=== PATIENT | female | born 1985 | race Caucasian/White ===

== ENCOUNTER 2018-11-17 15:42 | Inpatient (IN) | payer OTHER ==
[2018-11-17 17:16] VITALS: BMI 32.3
--- NOTE | 2018-11-17 18:11 | HP ---
"COWS - Scale Resting Pulse: 1= [place] 81-100 Sweatin=Flushed/Facial Moisture Restless Observation: 3= Extraneous Movement Pupil Size: 2= Moderately Dilated (Pupils = 5 mm) Bone or Joint Aches: 1= Mild Discomfort Runny Nose/ Eye Tearin= Runny Nose/Eyes GI Upset > 30mins: 2= Nausea/Diarrhea Tremor Observation: 4= Gross Tremor/Twitching Yawning Observation: 1= 1-2x During Session Anxiety or Irritability: 2=Irritable/Anxious Goose Flesh Skin: 0=Smooth Skin COWS Score: 20 CIWA Score - Admission Criteria OASAS Guidelines: Admission for Medically Managed Detox: Requires at least one of the followin. CIWA greater than 12 2. Seizures within the past 24 hours 3. Delirium tremens within the past 24 hours 4. Hallucinations within the past 24 hours 5. Acute intervention needed for co occurring medical disorder 6. Acute intervention needed for co occurring psychiatric disorder 7. Severe withdrawal that cannot be handled at a lower level of care (continued vomiting, continued diarrhea, abnormal vital signs) requiring intravenous medication and/or fluids 8. Admission ROS S - [facility] Chief Complaint: I'm really sick. They told me to come without using. Allergies/Adverse Reactions: Allergies Allergy/AdvReac Type Severity Reaction Status Date / Time No Known Allergies Allergy Verified 11/17/18 17:12 History of Present Illness: This is the first admission for this 32 yo who presents w/opiate withdrawal symptoms seeking detox. Utox: + FEN, MOP HCG: Neg Heroin use began 31. Current use is 35-40 bags/day x months. Has been trying to stop. States last used yesterday. Denies alcohol use. Dibbed and dabbed in past w. cocaine. Denies seizures, blackouts, overdoses. PMHx: Denies significant PMH. Denies medications. MHx: Denies depression. Denies thoughts of harming self or others SHx: Own apt. Unemployed. No legal issues. Search Terms: Alexia Marquez, 1985 Search Date: 11/17/2018 06:08:36 PM The Drug Utilization Report below displays all of the controlled substance prescriptions, if any, that your patient has filled in the last twelve months. The information displayed on this report is compiled from pharmacy submissions to the Department, and accurately reflects the information as submitted by the pharmacies. This report was requested by: Maureengold Valerio | Reference #: [id number] There are no results for the search terms that you entered. Exam Limitations: No Limitations - Ebola screening Have you traveled outside of the country in the last 21 days: No Have you had contact with anyone from an Ebola affected area: No Have you been sick,other than usual withdrawal symptoms: No Do you have a fever: No - Review of Systems Constitutional: Chills, Diaphoresis, Fever, Loss of Appetite, Changes in sleep ( Difficulty falling asleep) EENT: reports: Nose Congestion Respiratory: reports: Shortness of Breath Cardiac: reports: No Symptoms Reported GI: reports: Nausea, Abdominal cramping, Other (gagging) : reports: No Symptoms Reported Musculoskeletal: reports: Back Pain (r/t withdrawal), Muscle Pain (r/t withdrawal) Integumentary: reports: Rash (exzema), Other (Picking skin - unrelated to itching) Neuro: reports: Headache (Severe frontal headache), Tremors Endocrine: reports: No Symptoms Reported Hematology: reports: No Symptoms Reported Psychiatric: reports: Mood/Affect Appropiate, Orientated x3, Agitated, Anxious Patient History - PPD History Previous Implant?: No (Will order TB Gold test) PPD to be Administered?: No - Reproductive History Patient is a Female of Child Bearing Age (11 -55 yrs old): Yes Last Menstrual Period: 09/06/18 (Irrgular) Patient : No - Smoking Cessation Smoking history: Current every day smoker Have you smoked in the past 12 months: Yes Aproximately how many cigarettes per day: 10 Hx Chewing Tobacco Use: No Initiated information on smoking cessation: Yes 'Breaking Loose' booklet given: 11/17/18 - Substance & Tx. History Hx Alcohol Use: No Hx Substance Use: Yes Substance Use Type: Heroin Hx Substance Use Treatment: No (Tried stopping on own) - Substances abused Heroin Substance route: Inhalation Frequency: Daily Amount used: 35-40bags/day Age of first use: 31 Date of last use: 11/16/18 Admission Physical Exam BHS - Vital Signs Vital Signs: Vital Signs - 24 hr 11/17/18 17:00 Temperature 99.1 F Pulse Rate 87 Respiratory 16 Rate Blood Pressure 155/102 H - Physical General Appearance: Yes: Nourished, Moderate Distress, Tremorous, Sweating, Anxious HEENTM: Yes: EOMI, Hearing grossly Normal, SILVANO (Pupils = 5 mm), Nasal Congestion, Rhinorrhea, Other (Perforated nasal septum) Respiratory: Yes: Lungs Clear, Normal Breath Sounds, No Respiratory Distress Neck: Yes: No masses,lesions,Nodules, Supple Breast: Yes: Breast Exam Deferred Cardiology: Yes: Regular Rhythm, Regular Rate, S1, S2 Abdominal: Yes: Non Tender, Soft, Increased Bowel Sounds, Protuberent ( Increased abdominal adiposity) Genitourinary: Yes: Within Normal Limits Back: Yes: Normal Inspection Musculoskeletal: Yes: full range of Motion, Gait Steady, Other (Hx ankle repair w/ (L) ankle enlargement. No edema) Extremities: Yes: Normal Capillary Refill, Tremors (gross tremors) Neurological: Yes: public health nutritionist II-XII NML intact, Fully Oriented, Alert, Motor Strength 5/5, Normal Response Integumentary: Yes: Normal Color, Warm, Diaphoresis (Increased facial moisture) , Other (Picked skin w/ erythema and scabbing on arms and legs. Red dot-like papular lesions on arms, chest and back) Lymphatic: Yes: Within Normal Limits - Diagnostic (1) Opioid dependence with withdrawal Current Visit: Yes Status: Acute (2) Nicotine dependence, uncomplicated Current Visit: Yes Status: Chronic Qualifiers: Nicotine product type: cigarettes Qualified Code(s): F17.210 - Nicotine dependence, cigarettes, uncomplicated (3) Perforated nasal septum Current Visit: Yes Status: Chronic (4) Skin picking habit Current Visit: Yes Status: Chronic Cleared for Admission [facility] - Detox or Rehab [facility] Level of Care: Medically Managed Detox Regimen/Protocol: Methadone Claeared for Rehab Admission: No Breathalyzer - Breathalyzer Breathalyzer: 0 Urine Drug Screen - Test Device Lot number: [id number] Expiration date: 08/01/20 - Control Is test valid?: Yes - Results Drug screen NEGATIVE: Yes Urine drug screen results: FEN-Fentanyl, MOP-Opiates Inpatient Rehab Admission - Rehab Decision to Admit Inpatient rehab admission?: No"
[2018-11-17] MEDS ORDERED: cloNIDine HCL 0.1 MG TABLET PO PRN (18:28)
[2018-11-17] MEDS ORDERED: PROCHLORPERAZINE MALEATE 5 MG TABLET PO PRN (18:28)
[2018-11-17] MEDS ORDERED: METHADONE HCL 10 MG TABLET (FOR DETOX USE ONLY) PO ONE ×2 (18:28→19:00)
[2018-11-17] MEDS ORDERED: MAGNESIUM HYDROX 2400MG/30ML ORAL SUSPENSION 30 ML CUP PO PRN (18:28)
[2018-11-17] MEDS ORDERED: NICOTINE POLACRILEX 2 MG GUM BUC PRN (18:28)
[2018-11-17] MEDS ORDERED: MAG HYDROX/AL HYDROX/SIMETH 30 ML UNIT-DOSE CUP PO PRN (18:28)
[2018-11-17] MEDS ORDERED: ACETAMINOPHEN 325 MG TABLET (FP) PO PRN ×2 (18:28)
[2018-11-17] MEDS ORDERED: IBUPROFEN 400 MG TABLET (FP) PO PRN (18:28)
[2018-11-17] MEDS ORDERED: MENTHOL/PHENOL 1 EACH UD MM PRN (18:28)
[2018-11-17] MEDS ORDERED: BISMUTH SUBSALICYLATE 524 MG/30 ML UD PO PRN (18:28)
[2018-11-17] MEDS ORDERED: MAGNESIUM CITRATE 300 ML BOTTLE PO PRN (18:28)
[2018-11-17] MEDS ORDERED: cloNIDine HCL 0.1 MG TABLET PO ONE (18:33)
[2018-11-17] MEDS: MELATONIN 5 MG TABLETS PO PRN (22:17)
[2018-11-17] MEDS: THIAMINE HCL 100 MG TABLET (FP) PO SCH (22:17)
[2018-11-17] MEDS: BACITRACIN 0.9 GM PACKET TP SCH (22:18)
[2018-11-17] MEDS: METHOCARBAMOL 500 MG TABLET PO PRN (22:20)
[2018-11-17] MEDS: clonazePAM 0.5 MG TABLET PO PRN (22:20)
[2018-11-18] MEDS: clonazePAM 0.5 MG TABLET PO PRN (07:01)
[2018-11-18] MEDS ORDERED: METHADONE HCL 10 MG TABLET (FOR DETOX USE ONLY) ONE (09:40)
[2018-11-18] MEDS ORDERED: METHADONE HCL 5 MG TABLET (FOR DETOX USE ONLY) ONE (09:40)
[2018-11-18 09:59] LABS: HEMATOCRIT 43.7 % (32.4-45.2); HEMOGLOBIN 14.8 GM/dL (10.7-15.3); MCH 31.1 pg (25.7-33.7); MEAN CELL VOLUME 91.5 fl (80-96); MEAN PLT VOLUME 9.7 fl (7.5-11.1); PLATELET COUNT 280 K/MM3 (134-434); RBC 4.77 M/mm3 (3.60-5.2); RDW 13.8 % (11.6-15.6); WHITE BLOOD COUNT 9.4 K/mm3 (4.0-10.0)
[2018-11-18] MEDS ORDERED: METHADONE (DETOX) 20 MG, METHADONE (DETOX) 5 MG PO ONE (10:00)
[2018-11-18] MEDS: METHOCARBAMOL 500 MG TABLET PO PRN (10:03)
[2018-11-18] MEDS: PRENATAL VITAMINS W/ FOLIC ACID TABLET (FP) PO SCH (10:03)
[2018-11-18] MEDS: BACITRACIN 0.9 GM PACKET TP SCH ×2 (10:04→22:28)
[2018-11-18] MEDS: NICOTINE 21 MG/24 HOURS TOPICAL PATCH TD SCH (10:04)
--- NOTE | 2018-11-18 10:09 | PN ---
BHS COWS - Scale Resting Pulse: 1= [place] 81-100 Sweatin=Flushed/Facial Moisture Restless Observation: 1= Difficult to Sit Still Pupil Size: 0= Normal to Room Light Bone or Joint Aches: 2= Severe Diffuse Aches Runny Nose/ Eye Tearin= Runny Nose/Eyes GI Upset > 30mins: 2= Nausea/Diarrhea Tremor Observation of Outstretched Hands: 2= Slight Tremor Visible Yawning Observation: 2= >3x During Session Anxiety or Irritability: 2=Irritable/Anxious Goose Flesh Skin: 0=Smooth Skin COWS Score: 16 BHS Progress Note (SOAP) Subjective: sweats shakes restless body aches interrupted sleep agitation Objective: 11/18/18 10:08 Vital Signs Temperature 97.9 F 11/18/18 09:02 Pulse Rate 82 11/18/18 09:02 Respiratory Rate 18 11/18/18 09:02 Blood Pressure 137/76 11/18/18 09:02 O2 Sat by Pulse Oximetry (%) Laboratory Tests 11/18/18 08:00 WBC 9.4 RBC 4.77 Hgb 14.8 Hct 43.7 MCV 91.5 MCH 31.1 MCHC 34.0 RDW 13.8 Plt Count 280 MPV 9.7 rest of labs pending aaox3 ambulating no acute distress Assessment: 11/18/18 10:09 withdrawals sx Plan: continue detox increase fluids valium 10mg prn pending labs
[2018-11-18 10:24] LABS: ALBUMIN 4.1 g/dl (3.4-5.0); BILIRUBIN,TOTAL 1.6 mg/dL (0.2-1); BLOOD UREA NITROGEN 10.4 mg/dL (7-18); CALCIUM 9.2 mg/dL (8.5-10.1); CREATININE 0.7 mg/dL (0.55-1.3); TOT PROT 7.4 g/dl (6.4-8.2)
[2018-11-18] MEDS: diazePAM 5 MG TABLET PO PRN ×3 (10:33→20:03)
--- NOTE | 2018-11-18 13:03 | EKG ---
Test Reason : Blood Pressure : / mmHG Vent. Rate : 073 BPM Atrial Rate : 073 BPM P-R Int : 180 ms QRS Dur : 078 ms QT Int : 374 ms P-R-T Axes : 023 050 039 degrees QTc Int : 412 ms NORMAL SINUS RHYTHM NORMAL ECG NO PREVIOUS ECGS AVAILABLE Confirmed by MD Last, Mario ([id number]) on 11/18/2018 1:03:24 PM Referred By: LEONIE LONG Confirmed By:Mario Ni MD
[2018-11-18] MEDS: THIAMINE HCL 100 MG TABLET (FP) PO SCH (22:02)
[2018-11-18] MEDS: MELATONIN 5 MG TABLETS PO PRN (22:03)
[2018-11-19] MEDS: diazePAM 5 MG TABLET PO PRN ×5 (00:31→22:20)
--- NOTE | 2018-11-19 09:47 | PN ---
BHS COWS - Scale Resting Pulse: 1= [place] 81-100 Sweatin= Chills/Flushing Restless Observation: 1= Difficult to Sit Still Pupil Size: 1= Pupils >than Normal Bone or Joint Aches: 2= Severe Diffuse Aches Runny Nose/ Eye Tearin= Runny Nose/Eyes GI Upset > 30mins: 2= Nausea/Diarrhea Tremor Observation of Outstretched Hands: 2= Slight Tremor Visible Yawning Observation: 1= 1-2x During Session Anxiety or Irritability: 2=Irritable/Anxious Goose Flesh Skin: 0=Smooth Skin COWS Score: 15 BHS Progress Note (SOAP) Subjective: alert,irritable,anxious,interrupted sleep,pain in the body and back,nausea Objective: 11/19/18 09:43 Vital Signs Temperature 98.6 F 11/19/18 09:05 Pulse Rate 87 11/19/18 09:05 Respiratory Rate 18 11/19/18 09:05 Blood Pressure 114/59 L 11/19/18 09:05 O2 Sat by Pulse Oximetry (%) Laboratory Last Values WBC 9.4 K/mm3 (4.0-10.0) 11/18/18 08:00 RBC 4.77 M/mm3 (3.60-5.2) 11/18/18 08:00 Hgb 14.8 GM/dL (10.7-15.3) 11/18/18 08:00 Hct 43.7 % (32.4-45.2) 11/18/18 08:00 MCV 91.5 fl (80-96) 11/18/18 08:00 MCH 31.1 pg (25.7-33.7) 11/18/18 08:00 MCHC 34.0 g/dl (32.0-36.0) 11/18/18 08:00 RDW 13.8 % (11.6-15.6) 11/18/18 08:00 Plt Count 280 K/MM3 (134-434) 11/18/18 08:00 MPV 9.7 fl (7.5-11.1) 11/18/18 08:00 Sodium 138 mmol/L (136-145) 11/18/18 08:00 Potassium 4.0 mmol/L (3.5-5.1) 11/18/18 08:00 Chloride 104 mmol/L (98-107) 11/18/18 08:00 Carbon Dioxide 26 mmol/L (21-32) 11/18/18 08:00 Anion Gap 8 MMOL/L (8-16) 11/18/18 08:00 BUN 10.4 mg/dL (7-18) 11/18/18 08:00 Creatinine 0.7 mg/dL (0.55-1.3) 11/18/18 08:00 Est GFR (CKD-EPI)AfAm 131.02 11/18/18 08:00 Est GFR (CKD-EPI)NonAf 113.04 11/18/18 08:00 Random Glucose 89 mg/dL (74-106) 11/18/18 08:00 Calcium 9.2 mg/dL (8.5-10.1) 11/18/18 08:00 Total Bilirubin 1.6 mg/dL (0.2-1) H 11/18/18 08:00 AST 13 U/L (15-37) L 11/18/18 08:00 ALT 18 U/L (13-61) 11/18/18 08:00 Alkaline Phosphatase 97 U/L (45-117) 11/18/18 08:00 Total Protein 7.4 g/dl (6.4-8.2) 11/18/18 08:00 Albumin 4.1 g/dl (3.4-5.0) 11/18/18 08:00 POC Urine HCG, Qual Negative 11/17/18 19:13 Assessment: 11/19/18 09:46 withdrawal symptom Plan: continue detox methadone regimen,encourage oral fluid,psychiatric consultation for anxiety,depression and insomnia
[2018-11-19] MEDS ORDERED: METHADONE HCL 10 MG TABLET (FOR DETOX USE ONLY) PO ONE (10:00)
[2018-11-19] MEDS: PRENATAL VITAMINS W/ FOLIC ACID TABLET (FP) PO SCH (10:44)
[2018-11-19] MEDS: NICOTINE 21 MG/24 HOURS TOPICAL PATCH TD SCH (10:44)
[2018-11-19] MEDS: BACITRACIN 0.9 GM PACKET TP SCH ×2 (11:11→23:06)
[2018-11-19] MEDS: THIAMINE HCL 100 MG TABLET (FP) PO SCH (22:18)
[2018-11-19] MEDS: MELATONIN 5 MG TABLETS PO PRN (22:20)
[2018-11-20] MEDS ORDERED: METHADONE HCL 10 MG TABLET (FOR DETOX USE ONLY) ONE (09:16)
[2018-11-20] MEDS ORDERED: METHADONE HCL 5 MG TABLET (FOR DETOX USE ONLY) ONE (09:17)
[2018-11-20] MEDS ORDERED: METHADONE (DETOX) 10 MG, METHADONE (DETOX) 5 MG PO ONE (10:00)
[2018-11-20] MEDS: PRENATAL VITAMINS W/ FOLIC ACID TABLET (FP) PO SCH (10:13)
[2018-11-20] MEDS: NICOTINE 21 MG/24 HOURS TOPICAL PATCH TD SCH (10:14)
[2018-11-20] MEDS: BACITRACIN 0.9 GM PACKET TP SCH ×2 (10:22→22:19)
--- NOTE | 2018-11-20 10:25 | PN ---
BHS COWS - Scale Resting Pulse: 1= [place] 81-100 Sweatin= Chills/Flushing Restless Observation: 1= Difficult to Sit Still Pupil Size: 0= Normal to Room Light Bone or Joint Aches: 1= Mild Discomfort Runny Nose/ Eye Tearin= Nasal Congestion GI Upset > 30mins: 0= None Tremor Observation of Outstretched Hands: 0= None Yawning Observation: 0= None Anxiety or Irritability: 2=Irritable/Anxious Goose Flesh Skin: 0=Smooth Skin COWS Score: 7 BHS Progress Note (SOAP) Subjective: sweats anxiety body aches restless Objective: 11/20/18 10:24 Vital Signs Temperature 98.1 F 11/20/18 09:12 Pulse Rate 98 H 11/20/18 09:12 Respiratory Rate 16 11/20/18 09:12 Blood Pressure 110/78 11/20/18 09:12 O2 Sat by Pulse Oximetry (%) Laboratory Tests 11/17/18 11/18/18 11/18/18 19:13 08:00 08:00 WBC 9.4 RBC 4.77 Hgb 14.8 Hct 43.7 MCV 91.5 MCH 31.1 MCHC 34.0 RDW 13.8 Plt Count 280 MPV 9.7 Sodium 138 Potassium 4.0 Chloride 104 Carbon Dioxide 26 Anion Gap 8 BUN 10.4 Creatinine 0.7 Est GFR (CKD-EPI)AfAm 131.02 Est GFR (CKD-EPI)NonAf 113.04 Random Glucose 89 Calcium 9.2 Total Bilirubin 1.6 H AST 13 L ALT 18 Alkaline Phosphatase 97 Total Protein 7.4 Albumin 4.1 POC Urine HCG, Qual Negative RPR Titer TB (QFT) Incubation TB Test (QFT) Nil TB Test (QFT) Mitogen TB Test (QFT) Antigen TB Test (QFT) TB Positive Criteria 11/18/18 11/18/18 08:00 08:00 WBC RBC Hgb Hct MCV MCH MCHC RDW Plt Count MPV Sodium Potassium Chloride Carbon Dioxide Anion Gap BUN Creatinine Est GFR (CKD-EPI)AfAm Est GFR (CKD-EPI)NonAf Random Glucose Calcium Total Bilirubin AST ALT Alkaline Phosphatase Total Protein Albumin POC Urine HCG, Qual RPR Titer Nonreactive TB (QFT) Incubation TB Test (QFT) Nil 0.03 TB Test (QFT) Mitogen >10.00 TB Test (QFT) Antigen 0.02 TB Test (QFT) Negative TB Positive Criteria aaox3 ambulating labs noted no acute distress Assessment: 11/20/18 11:51 mild withdrawal Plan: continue detox increase fluids
[2018-11-20 11:44] LABS: ALBUMIN 4.5 g/dl (3.4-5.0); BILIRUBIN,TOTAL 0.8 mg/dL (0.2-1); BLOOD UREA NITROGEN 8.9 mg/dL (7-18); CALCIUM 9.7 mg/dL (8.5-10.1); CREATININE 0.9 mg/dL (0.55-1.3); POTASSIUM 4.2 mmol/L (3.5-5.1)
--- NOTE | 2018-11-20 13:33 | CONSULT ---
[facility] Psychiatric Consult - Data Date of interview: 11/20/18 Admission source: [facility] Identifying data: Patient is a 32 year old single female, without children, domiciled, unemployed, and is supported by her boyfriend and parents. This is patient's first admission to detox at [facility]. Patient admitted to for opiate dependence. Substance Abuse History: Smoking Cessation. Smoking history: Current every day smoker. Have you smoked in the past 12 months: Yes. Aproximately how many cigarettes per day: 10. Hx Chewing Tobacco Use: No. Initiated information on smoking cessation: Yes. 'Breaking Loose' booklet given: 11/17/18. - Substance & Tx. History. Hx Alcohol Use: No. Hx Substance Use: Yes. Substance Use Type : Heroin. Hx Substance Use Treatment: No (Tried stopping on own). - Substances abused. Heroin. Substance route: Inhalation. Frequency: Daily. Amount used: 35-40bags/day. Age of first use: 31. Date of last use: 11/16/18 Medical History: Denies. Psychiatric History: Patient denies history of psychiatric hospitalizations, outpatient care, and suicide attempt. At present patient reports stable mood. Physical/Sexual Abuse/Trauma History: denies. Mental Status Exam - Mental Status Exam Alert and Oriented to: Time, Place, Person Cognitive Function: Good Patient Appearance: Well Groomed Mood: Euthymic Affect: Mood Congruent Patient Behavior: Cooperative Speech Pattern: Appropriate Voice Loudness: Normal Thought Process: Goal Oriented Thought Disorder: Not Present Hallucinations: Denies Suicidal Ideation: Denies Homicidal Ideation: Denies Insight/Judgement: Poor Sleep: Poorly Appetite: Fair Muscle strength/Tone: Normal Gait/Station: Normal Psychiatric Findings - Problem List ([place] 1, 2,3) (1) Opioid dependence with withdrawal Current Visit: Yes Status: Acute (2) Nicotine dependence, uncomplicated Current Visit: Yes Status: Chronic Qualifiers: Nicotine product type: cigarettes Qualified Code(s): F17.210 - Nicotine dependence, cigarettes, uncomplicated - Initial Treatment Plan Initial Treatment Plan: Psychoeducation provided. Rehab in progress. Observation.
[2018-11-20] MEDS: diazePAM 5 MG TABLET PO PRN ×2 (14:29→22:18)
[2018-11-20] MEDS: MELATONIN 5 MG TABLETS PO PRN (22:18)
[2018-11-20] MEDS: THIAMINE HCL 100 MG TABLET (FP) PO SCH (22:18)
[2018-11-21] MEDS: diazePAM 5 MG TABLET PO PRN (07:04)
[2018-11-21] MEDS ORDERED: METHADONE HCL 10 MG TABLET (FOR DETOX USE ONLY) PO ONE (10:00)
--- NOTE | 2018-11-21 10:01 | PN ---
BHS COWS - Scale Resting Pulse: 1= [place] 81-100 Sweatin= No chills or Flushing Restless Observation: 1= Difficult to Sit Still Pupil Size: 0= Normal to Room Light Bone or Joint Aches: 1= Mild Discomfort Runny Nose/ Eye Tearin= Nasal Congestion GI Upset > 30mins: 1= Stomach Cramp Tremor Observation of Outstretched Hands: 1= Tremor [place], Not Seen Yawning Observation: 0= None Anxiety or Irritability: 1=Feels Anxious/Irritable Goose Flesh Skin: 0=Smooth Skin COWS Score: 7 BHS Progress Note (SOAP) Subjective: alert,irritable,anxious,interrupted sleep,pain in the body Objective: 11/21/18 10:00 Vital Signs Temperature 98.0 F 11/21/18 09:36 Pulse Rate 84 11/21/18 09:36 Respiratory Rate 18 11/21/18 09:36 Blood Pressure 117/82 11/21/18 09:36 O2 Sat by Pulse Oximetry (%) Assessment: 11/21/18 10:00 withdrawal symptom Plan: continue detox methadone regimen,discharge in am
[2018-11-21] MEDS: BACITRACIN 0.9 GM PACKET TP SCH ×2 (10:06→22:18)
[2018-11-21] MEDS: NICOTINE 21 MG/24 HOURS TOPICAL PATCH TD SCH (10:08)
[2018-11-21] MEDS: PRENATAL VITAMINS W/ FOLIC ACID TABLET (FP) PO SCH (10:08)
[2018-11-21] MEDS: THIAMINE HCL 100 MG TABLET (FP) PO SCH (22:16)
[2018-11-21] MEDS: MELATONIN 5 MG TABLETS PO PRN (22:17)
[2018-11-22] MEDS ORDERED: METHADONE HCL 5 MG TABLET (FOR DETOX USE ONLY) PO ONE (06:00)
[2018-11-22 06:19] VITALS: BP 119/64; PULSE 74; TEMP 97.4
--- NOTE | 2018-11-22 13:34 | DS ---
[facility] Detox Discharge Summary Admission Date: 11/17/18 Discharge Date: 11/22/18 - History Present History: Opioid Dependence Additional Comments: Pt is medically cleared and is discharged today. Pt completed her detox protocol. Pt is encouraged to follow-up with outpatient CD program and also to follow-up with her PMD. Pt verbalized understanding. Pt is alert and oriented x3 and in no respiratory distress. Pertinent Past History: H/O heroin use disorder. - Physical Exam Results Vital Signs: Vital Signs Temperature 97.4 F L 11/22/18 06:00 Pulse Rate 74 11/22/18 06:00 Respiratory Rate 18 11/22/18 06:00 Blood Pressure 119/64 11/22/18 06:00 O2 Sat by Pulse Oximetry (%) Vital Signs 11/22/18 06:00 Temperature 97.4 F L Pulse Rate 74 Respiratory 18 Rate Blood Pressure 119/64 Lab Results WBC 9.4 K/mm3 (4.0-10.0) 11/18/18 08:00 RBC 4.77 M/mm3 (3.60-5.2) 11/18/18 08:00 Hgb 14.8 GM/dL (10.7-15.3) 11/18/18 08:00 Hct 43.7 % (32.4-45.2) 11/18/18 08:00 MCV 91.5 fl (80-96) 11/18/18 08:00 MCHC 34.0 g/dl (32.0-36.0) 11/18/18 08:00 RDW 13.8 % (11.6-15.6) 11/18/18 08:00 Plt Count 280 K/MM3 (134-434) 11/18/18 08:00 Sodium 139 mmol/L (136-145) 11/20/18 07:50 Potassium 4.2 mmol/L (3.5-5.1) 11/20/18 07:50 Chloride 102 mmol/L (98-107) 11/20/18 07:50 Carbon Dioxide 28 mmol/L (21-32) 11/20/18 07:50 Anion Gap 9 MMOL/L (8-16) 11/20/18 07:50 BUN 8.9 mg/dL (7-18) 11/20/18 07:50 Creatinine 0.9 mg/dL (0.55-1.3) 11/20/18 07:50 Random Glucose 92 mg/dL (74-106) 11/20/18 07:50 Calcium 9.7 mg/dL (8.5-10.1) 11/20/18 07:50 Labs noted. Pertinent Admission Physical Exam Findings: withdrawal symptoms. - Treatment Hospital Course: Detox Protocol Followed, Detoxed Safely, Responded well, Discharged Condition Good - Medication Discharge Medications: Ambulatory Orders NK [No Known Home Medication] 11/17/18 - Diagnosis (1) Opioid dependence with withdrawal Status: Acute (2) Nicotine dependence, uncomplicated Status: Chronic Qualifiers: Nicotine product type: cigarettes Qualified Code(s): F17.210 - Nicotine dependence, cigarettes, uncomplicated (3) Perforated nasal septum Status: Chronic (4) Skin picking habit Status: Chronic - AMA Did Patient Leave Against Medical Advice: No BHS COWS - Scale Resting Pulse: 0= OR 80 or Below Sweatin= No chills or Flushing Restless Observation: 0= Sits Still Pupil Size: 0= Normal to Room Light Bone or Joint Aches: 0= None Runny Nose/ Eye Tearin= None GI Upset > 30mins: 0= None Tremor Observation of Outstretched Hands: 0= None Yawning Observation: 0= None Anxiety or Irritability: 2=Irritable/Anxious Goose Flesh Skin: 0=Smooth Skin COWS Score: 2
== END 2018-11-22 07:05 | disposition home or self-care (01) | DRG 773 ==
LOC: YASAS 15:42 → Y6N 18:44
PROVIDERS: ADMIT Surgery; ATTEND Surgery
PROC: HZ2ZZZZ Detoxification Services for Substance Abuse Treatment (ICD-10-PCS; principal; 2018-11-17)
DX: F11.23 Opioid dependence with withdrawal (principal); F17.210 Nicotine dependence, cigarettes, uncomplicated; F42.4 Excoriation (skin-picking) disorder; J34.89 Other specified disorders of nose and nasal sinuses
CPT/HCPCS: 36415; 80053; 81025; 85027; 86480; 86593; 93005; 93010; J0735